=== PATIENT | male | born 1990 | race Caucasian/White ===

== ENCOUNTER 2018-04-07 13:59 | Emergency (ER) | payer SELFPAY ==
[2018-04-07 14:34] VITALS: BP 145/71
[2018-04-07] MEDS ORDERED: TRAMADOL HCL 50 MG TABLET PO ONE (14:45)
--- NOTE | 2018-04-07 14:46 | ER Document Report ---
ED Medical Screen (RME) - General Chief Complaint: Eye Problem Stated Complaint: EYE PROBLEM Time Seen by Provider: 04/07/18 14:40 Notes: RAPID MEDICAL EVALUATION DISCLOSURE I have seen this patient as part of a Rapid Medical Evaluation and, if applicable, placed any initially appropriate orders. The patient will be seen and fully evaluated, including a full history and physical exam, by a provider ( in Main ED or Fast Track) when a room becomes available. 28-year-old male here with complaints of continued right eye pain. He was seen here on 04/03/2018 because he thought he had some would underneath his contact lens but states they were unable to find anything that day. He was prescribed ketorolac drops and antibiotic drops and he has been taking them for the past 4 days but pain persists. He has an appointment with the data acquisition technician on Thursday but could not wait. EXAM Conjunctival injection Pupils equal reactive to light No discharge visualized TRAVEL OUTSIDE OF THE [place] IN LAST 30 DAYS: No - Related Data Allergies/Adverse Reactions: Penicillins Allergy (Verified 04/07/18 14:00) Past Medical History - Social History Chew tobacco use (# tins/day): No Frequency of alcohol use: Rare Drug Abuse: None Renal/ Medical History: Denies: Hx Peritoneal Dialysis - Immunizations Hx Diphtheria, Pertussis, Tetanus Vaccination: Yes Physical Exam - Vital signs Vitals: Temp Pulse Resp BP Pulse Ox 98.8 F 61 20 145/71 H 98 04/07/18 14:32 04/07/18 14:32 04/07/18 14:32 04/07/18 14:32 04/07/18 14:32 Course - Vital Signs Vital signs: Temp Pulse Resp BP Pulse Ox 98.8 F 61 20 145/71 H 98 04/07/18 14:32 04/07/18 14:32 04/07/18 14:32 04/07/18 14:32 04/07/18 14:32 Doctor's Discharge - Discharge Referrals: BETTINA GERMAN [Primary Care Provider] - Follow up as needed
[2018-04-07] MEDS ORDERED: MELOXICAM 15 MG TABLET PO ONE (14:51)
== END 2018-04-07 18:35 | disposition home or self-care (01) ==
LOC: ER 13:59
DX: Z53.21 Procedure and treatment not carried out due to patient leaving prior to being seen by health care provider (principal); H57.10 Ocular pain, unspecified eye
CPT/HCPCS: 99281